=== PATIENT | male | born 1960 | race Caucasian/White ===

== ENCOUNTER 2020-09-25 19:30 | Outpatient (CLI) | payer OTHER | END 2020-09-25 19:31 | disposition home or self-care (01) | LOC: SLEEPLAB 19:30 | PROVIDERS: ATTEND Physician Assistant | DX: G47.33 Obstructive sleep apnea (adult) (pediatric) (principal); I10 Essential (primary) hypertension; R06.83 Snoring; E66.9 Obesity, unspecified; G47.10 Hypersomnia, unspecified; E11.9 Type 2 diabetes mellitus without complications; G47.00 Insomnia, unspecified; Z68.32 Body mass index [BMI] 32.0-32.9, adult | CPT/HCPCS: 95810 ==

== ENCOUNTER 2020-10-08 19:00 | Outpatient (CLI) | payer OTHER | END 2020-10-08 19:01 | disposition home or self-care (01) | LOC: SLEEPLAB 19:00 | PROVIDERS: ATTEND Physician Assistant | DX: G47.33 Obstructive sleep apnea (adult) (pediatric) (principal); E66.9 Obesity, unspecified; R06.83 Snoring; I10 Essential (primary) hypertension; Z68.32 Body mass index [BMI] 32.0-32.9, adult | CPT/HCPCS: 95811 ==

== ENCOUNTER 2022-06-03 11:43 | Outpatient (CLI) | payer OTHER ==
[2022-06-03 12:50] LABS: #Basophils 0.1 10x3/uL (0.0-0.2); #Eosinphils 0.1 10x3/uL (0.0-0.5); #Monocytes 0.5 10x3/uL (0.0-1.1); #Neutrophils 3.4 10x3/uL (1.5-8.4); %Basophils 1.4 % (0.0-2.0); %Eosinophils 1.9 % (0.0-6.0); %Monocytes 9.2 % (0.0-10.0); %Neutrophils 58.3 % (40.0-75.0); Hemoglobin 15.6 g/dL (13.5-17.5); Mean Corpuscular HGB CONC 34.4 g/dL (32.0-36.0); Mean Corpuscular Hemoglobin 27.8 pg (27.0-33.0); Mean Corpuscular Volume 80.9 fl (81.2-95.1); Mean Platelet Volume 12.4 fl (7.4-10.4); Platelet Count 231 10x3/uL (150-450); RBC Distribution Width 12.8 % (11.5-14.5); Red Blood Cell (RBC) Count 5.61 10x6/uL (4.32-5.72); White Blood Cell (WBC) Count 5.8 10x3/uL (3.5-10.5)
[2022-06-03 13:01] LABS: ALT (SGPT) 55 U/L (8-55); AST (SGOT) 30 U/L (5-34); Albumin 4.5 g/dL (3.5-5.0); Alkaline Phosphatase 56 U/L (40-110); Anion Gap 13 mmol/L (10-20); BUN (Urea Nitrogen) 13 mg/dL (8.4-25.7); Bilirubin, Total 0.5 mg/dL (0.2-1.2); Calc. Creatinine Clearance 0 mL/min (70-130); Calcium 9.6 mg/dL (7.8-10.44); Carbon Dioxide 28 mmol/L (22-29); Chloride 101 mmol/L (98-107); Estimated GFR 100; Globulin 2.9 g/dL (2.4-3.5); Glucose 228 mg/dL (70-105); Potassium 3.6 mmol/L (3.5-5.1); Protein, Total 7.4 g/dL (6.0-8.3); Sodium 138 mmol/L (136-145)
== END 2022-06-03 11:44 | disposition home or self-care (01) ==
LOC: LABBT 11:43
PROVIDERS: ATTEND Internal Medicine Cardiovascular Disease
DX: Z01.812 Encounter for preprocedural laboratory examination (principal); R94.39 Abnormal result of other cardiovascular function study; Z20.822 Contact with and (suspected) exposure to COVID-19
CPT/HCPCS: 80053; 85025; 87811

== ENCOUNTER 2022-06-08 05:55 | Day surgery (SDC) | payer OTHER ==
[2022-06-05 11:40] VITALS: BMI 32.5
[2022-06-08] MEDS ORDERED: Verapamil 5 MG/2 ML VIAL ONE (06:50)
[2022-06-08] MEDS ORDERED: Nitroglycerin 2% Ointment 1 INCH/1 GM Packet ONE (06:50)
[2022-06-08] MEDS ORDERED: Lidocaine 1% PF 5 ML VIAL ONE (06:50)
[2022-06-08] MEDS ORDERED: Heparin 10,000 UNITS/ 10 ML VIAL ONE (06:50)
[2022-06-08] MEDS ORDERED: Nitroglycerin 100MG/250ML BOT 250 ML ONE (06:52)
[2022-06-08] MEDS ORDERED: Fentanyl 100 MCG/2 ML VIAL ONE (07:39)
[2022-06-08] MEDS ORDERED: Midazolam HCl 2 mg/2 ml Vial ONE (07:39)
[2022-06-08] MEDS ORDERED: Iopamidol 370 76% 100 ML VIAL ONE (09:04)
== END 2022-06-08 13:10 | disposition home or self-care (01) ==
LOC: SDC 05:55
PROVIDERS: ATTEND Internal Medicine Cardiovascular Disease
PROC: B2111ZZ Fluoroscopy of Multiple Coronary Arteries using Low Osmolar Contrast (ICD-10-PCS; principal; 2022-06-08)
PROC: 4A023N7 Measurement of Cardiac Sampling and Pressure, Left Heart, Percutaneous Approach (ICD-10-PCS; principal; 2022-06-08)
DX: I25.119 Atherosclerotic heart disease of native coronary artery with unspecified angina pectoris (principal); I25.84 Coronary atherosclerosis due to calcified coronary lesion; I10 Essential (primary) hypertension; E78.5 Hyperlipidemia, unspecified; E11.9 Type 2 diabetes mellitus without complications; G47.33 Obstructive sleep apnea (adult) (pediatric); N52.9 Male erectile dysfunction, unspecified; J45.909 Unspecified asthma, uncomplicated; Z79.82 Long term (current) use of aspirin; Z79.84 Long term (current) use of oral hypoglycemic drugs; Z79.899 Other long term (current) drug therapy; Z88.0 Allergy status to penicillin
CPT/HCPCS: 93458; 99152; C1769; C1894; J1644; J2250; J3010

== ENCOUNTER 2022-06-15 11:00 | Inpatient (IN) | payer OTHER ==
[2022-06-15 12:48] LABS: Hemoglobin 15.4 g/dL (13.5-17.5); Mean Corpuscular HGB CONC 34.5 g/dL (32.0-36.0); Mean Corpuscular Hemoglobin 27.6 pg (27.0-33.0); Mean Corpuscular Volume 79.9 fl (81.2-95.1); Mean Platelet Volume 12.1 fl (7.4-10.4); Platelet Count 209 10x3/uL (150-450); RBC Distribution Width 12.9 % (11.5-14.5); Red Blood Cell (RBC) Count 5.58 10x6/uL (4.32-5.72); White Blood Cell (WBC) Count 8.2 10x3/uL (3.5-10.5)
[2022-06-15 13:02] LABS: Anion Gap 14 mmol/L (10-20); BUN (Urea Nitrogen) 17 mg/dL (8.4-25.7); Calc. Creatinine Clearance 0 mL/min (70-130); Calcium 9.8 mg/dL (7.8-10.44); Carbon Dioxide 27 mmol/L (22-29); Chloride 102 mmol/L (98-107); Estimated GFR 94; Glucose 202 mg/dL (70-105); Potassium 3.6 mmol/L (3.5-5.1); Sodium 139 mmol/L (136-145)
[2022-06-17] MEDS ORDERED: Levofloxacin 500 mg/D5W 100 ml Premix Bag ONE (06:28)
[2022-06-17] MEDS ORDERED: fentaNYL Citrate/PF 100 MCG/2 ML SYRINGE ONE (06:29)
[2022-06-17] MEDS ORDERED: Midazolam HCl 5 mg/5 ml Vial ONE (06:30)
[2022-06-17] MEDS ORDERED: Albumin 5% 500 ML ONE (06:34)
[2022-06-17] MEDS ORDERED: Lidocaine 1% MPF 2 ML VIAL ONE ×2 (06:44→06:47)
[2022-06-17] MEDS ORDERED: Heparin 10,000 UNITS/1 ML VIAL 30,000 UNITS in Sodium Chloride 0.9% 1,000 ML FS SCH (06:45)
[2022-06-17] MEDS ORDERED: Midazolam HCl 2 mg/2 ml Vial ONE (06:53)
[2022-06-17] MEDS ORDERED: Lidocaine 2% PF 100 mg/5 ml Syringe ONE (07:30)
[2022-06-17] MEDS ORDERED: PROPOFOL 200 MG/20 ML VIAL ONE (07:30)
[2022-06-17] MEDS ORDERED: Mannitol 12.5 GM/50 ML ONE (07:30)
[2022-06-17] MEDS ORDERED: Heparin 30,000 units/30 ml VIAL ONE (07:30)
[2022-06-17] MEDS ORDERED: Heparin 5,000 UNITS/ML VIAL ONE (07:30)
[2022-06-17] MEDS ORDERED: Cardioplegic Soln 1,000 ML BAG ONE (07:30)
[2022-06-17] MEDS ORDERED: Thrombin 5000 UNITS/5 ML VIAL ONE (07:30)
[2022-06-17] MEDS ORDERED: Albumin 25% 25 GM/100 ML BOT ONE (07:30)
[2022-06-17] MEDS ORDERED: Aminocaproic Acid 5 GM/20 ML VIAL ONE (07:30)
[2022-06-17] MEDS ORDERED: Magnesium Sulfate 1 GM/2 ML VIAL ONE (07:30)
[2022-06-17] MEDS ORDERED: Calcium Chloride 1 GM/10 ML Abboject SYRINGE ONE (07:30)
[2022-06-17] MEDS ORDERED: Vecuronium 10 MG VIAL ONE (07:30)
[2022-06-17] MEDS ORDERED: Papaverine 60 MG/2 ML VIAL ONE (07:30)
[2022-06-17] MEDS ORDERED: Protamine Sulfate 250 MG/25 ML VIAL ONE (07:30)
[2022-06-17] MEDS ORDERED: Sodium Bicarb 50 MEQ/50 ML Abboject 8.4% SYRINGE ONE (07:30)
[2022-06-17] MEDS ORDERED: PHENYLEPHRINE-NS 100 MCG/ML 10 ML SYRINGE ONE (07:40)
[2022-06-17] MEDS ORDERED: Clindamycin/D5W 900 mg/50 ml Premix Bag ONE (07:44)
[2022-06-17] MEDS ORDERED: Insulin Regular 300 UNITS/3 ML VIAL ONE (08:27)
[2022-06-17] MEDS ORDERED: Protamine Sulfate 50 MG/5 ML VIAL ONE (10:30)
[2022-06-17 11:25] LABS: ALV-art Gradient 269.675 mmHg (0-20); Actual Bicarbonate (HCO3a) 26.3 mEq/L (22-28); Base Excess (BEa) 0.4 mEq/L (-2.0 to +3.0); CO2 Tension 47.3 mmHg (35.0-45.0); Calcium, Ionized (arterial) 1.13 mmol/L (1.12-1.30); Carboxyhemoglobin (COHb) 0.5 gm% (0.0-3.0); Hemoglobin (Hb) 13.5 g/dL (14.0-18.0); Potassium - ABG Lab 2.98 mmol/L (3.70-5.30); Puncture Site Arterial Line; pH, Arterial 7.36 (7.35-7.45)
[2022-06-17] MEDS ORDERED: NOREPINEPHRINE 8 MG/250 ML-D5W 250 ML IVPB PRN (11:41)
[2022-06-17] MEDS ORDERED: Mag-Al 1200 mg/1200 mg/30 ML UDCUP PO PRN (11:41)
[2022-06-17] MEDS ORDERED: niCARdipine 25 MG in Sodium Chloride 0.9% 250 ML 250 ML IVPB PRN (11:41)
[2022-06-17] MEDS ORDERED: Hetastarch 6% 500 ML 500 ML IVPB PRN (11:41)
[2022-06-17] MEDS ORDERED: DOPamine 400 MG/D5W 250 ML 250 ML IVPB PRN (11:41)
[2022-06-17] MEDS ORDERED: Guaifenesin DM 100-10/5 ML UDCUP PO PRN (11:41)
[2022-06-17] MEDS ORDERED: Post-Op Insulin Drip Protocol IVPB ONE (11:41)
[2022-06-17] MEDS ORDERED: Promethazine HCl 25 MG/ML VIAL IM PRN (11:41)
[2022-06-17] MEDS ORDERED: Acetaminophen 325 MG TAB PO PRN (11:41)
[2022-06-17] MEDS ORDERED: Bisacodyl 10 MG SUPP PR PRN (11:41)
[2022-06-17] MEDS ORDERED: Nitroglycerin 50 MG/250 ML BOT 250 ML IVPB PRN (11:41)
[2022-06-17] MEDS ORDERED: Bisacodyl 5 MG TAB PO PRN (11:41)
[2022-06-17] MEDS ORDERED: hydrALAZINE 20 MG/ML VIAL SLOW IVP PRN (11:41)
[2022-06-17] MEDS ORDERED: Morphine 2 MG/ML VIAL SLOW IVP PRN (11:41)
[2022-06-17] MEDS ORDERED: Dextrose 5% in Water 1,000 ML IV PRN (11:45)
[2022-06-17] MEDS ORDERED: Dextrose 50% Abboject 50 ML SYRINGE SLOW IVP PRN (11:45)
[2022-06-17] MEDS ORDERED: HUMULIN R 100 UNITS in Sodium Chloride 0.9% 100 ML IVPB SCH (11:45)
[2022-06-17] MEDS ORDERED: Morphine 4 MG/ML VIAL ONE (11:46)
[2022-06-17 11:55] LABS: #Eosinphils 0.1 thou/uL (0.0-0.7); #Monocytes 0.4 thou/uL (0.11-0.59); #Neutrophils 13.8 thou/uL (1.40-6.50); %Basophils 0.1 % (0.0-1.0); %Eosinophils 0.8 % (0.0-10.0); %Lymphocytes 12.1 % (21.0-51.0); %Monocytes 2.3 % (0.0-10.0); %Neutrophils 84.7 % (42.0-75.0); Hemoglobin 13.2 g/dL (14.0-18.0); Mean Corpuscular HGB CONC 34.3 g/dL (32.0-36.0); Mean Corpuscular Hemoglobin 29.2 pg (27.0-31.0); Mean Corpuscular Volume 85.1 fL (78.0-98.0); Mean Platelet Volume 9.7 fL (7.4-10.4); Platelet Count 145 thou/uL (130-400); RBC Distribution Width 11.8 % (11.5-14.5); Red Blood Cell (RBC) Count 4.54 mill/uL (4.70-6.10); White Blood Cell (WBC) Count 16.3 thou/uL (4.8-10.8)
[2022-06-17] MEDS ORDERED: Ketorolac Tromethamine 30 MG/ML VIAL IVP SCH (12:00)
[2022-06-17 12:10] LABS: INR-International Normal Ratio 1.4; Prothrombin Time 17.5 sec (12.0-14.7)
[2022-06-17 12:11] LABS: PTT 28.9 sec (22.9-36.1)
[2022-06-17 12:15] LABS: Anion Gap 11 mmol/L (10-20); BUN (Urea Nitrogen) 11 mg/dL (8.4-25.7); Calc. Creatinine Clearance 156 mL/min (70-130); Calcium 8.4 mg/dL (7.8-10.44); Carbon Dioxide 27 mmol/L (22-29); Chloride 106 mmol/L (98-107); Estimated GFR 100; Glucose 183 mg/dL (70-105); Sodium 141 mmol/L (136-145)
[2022-06-17] MEDS: Lactated Ringer's 1,000 ML IV SCH (12:24)
[2022-06-17 12:41] LABS: Potassium 2.9 mmol/L (3.5-5.1)
[2022-06-17 12:41] LABS: Actual Bicarbonate (HCO3a) 23.9 mEq/L (22-28); Base Excess (BEa) 0.1 mEq/L (-2.0 to +3.0); CO2 Tension 36.2 mmHg (35.0-45.0); Carboxyhemoglobin (COHb) 0.4 gm% (0.0-3.0); Hemoglobin (Hb) 13.5 g/dL (14.0-18.0); O2 Tension (PaO2), arterial 213.9 mmHg (> 80.0); Potassium - ABG Lab 2.83 mmol/L (3.70-5.30); Puncture Site Arterial Line; pH, Arterial 7.44 (7.35-7.45)
[2022-06-17] MEDS: Potassium Chloride 20 MEQ/100 ML PREMIX BAG IVPB PRN ×2 (13:12→18:17)
[2022-06-17] MEDS: Fentanyl 100 MCG/2 ML VIAL SLOW IVP PRN ×5 (13:30→22:20)
[2022-06-17] MEDS: Clindamycin/D5W 900 MG in Premix Bag 1 BAG IVPB SCH ×3 (13:38→23:13)
[2022-06-17] MEDS: Ondansetron PF 4 MG/2 ML Vial IVP PRN ×2 (16:23→22:20)
[2022-06-17] MEDS: Ketorolac Tromethamine 30 MG/ML VIAL IVP SCH ×2 (17:50→23:15)
[2022-06-17 18:14] LABS: Potassium 2.9 mmol/L (3.5-5.1)
[2022-06-17 19:45] VITALS: BMI 32.3
[2022-06-17] MEDS: Atorvastatin Calcium 20 MG TAB PO SCH (20:24)
[2022-06-17] MEDS: Famotidine/PF 20 mg/2ml Vial SLOW IVP SCH (20:24)
[2022-06-17] MEDS ORDERED: Potassium Chloride 20 MEQ in Premix Bag 1 BAG IVPB SCH (22:00)
[2022-06-18] MEDS: Lactated Ringer's 1,000 ML IV SCH (00:42)
[2022-06-18] MEDS: Fentanyl 100 MCG/2 ML VIAL SLOW IVP PRN ×2 (01:30→04:35)
[2022-06-18 04:44] LABS: #Lymphocytes 1.1 thou/uL (1.20-3.40); #Monocytes 1.3 thou/uL (0.11-0.59); #Neutrophils 9.3 thou/uL (1.40-6.50); %Basophils 0.3 % (0.0-1.0); %Eosinophils 0.1 % (0.0-10.0); %Lymphocytes 9.7 % (21.0-51.0); %Monocytes 11.2 % (0.0-10.0); %Neutrophils 78.7 % (42.0-75.0); Hemoglobin 13.1 g/dL (14.0-18.0); Mean Corpuscular HGB CONC 32.9 g/dL (32.0-36.0); Mean Corpuscular Hemoglobin 27.9 pg (27.0-31.0); Mean Corpuscular Volume 84.6 fL (78.0-98.0); Mean Platelet Volume 10.1 fL (7.4-10.4); Platelet Count 163 thou/uL (130-400); RBC Distribution Width 11.9 % (11.5-14.5); Red Blood Cell (RBC) Count 4.71 mill/uL (4.70-6.10); White Blood Cell (WBC) Count 11.8 thou/uL (4.8-10.8)
[2022-06-18 05:08] LABS: Anion Gap 12 mmol/L (10-20); BUN (Urea Nitrogen) 10 mg/dL (8.4-25.7); Calc. Creatinine Clearance 172 mL/min (70-130); Calcium 8.5 mg/dL (7.8-10.44); Carbon Dioxide 26 mmol/L (22-29); Chloride 105 mmol/L (98-107); Estimated GFR 103; Glucose 123 mg/dL (70-105); Sodium 140 mmol/L (136-145)
[2022-06-18] MEDS: Clindamycin/D5W 900 MG in Premix Bag 1 BAG IVPB SCH (05:09)
[2022-06-18 05:23] LABS: Potassium 2.9 mmol/L (3.5-5.1)
[2022-06-18] MEDS: Potassium Chloride 20 MEQ/100 ML PREMIX BAG IVPB PRN (05:29)
[2022-06-18] MEDS: Ketorolac Tromethamine 30 MG/ML VIAL IVP SCH ×3 (05:43→17:39)
[2022-06-18] MEDS ORDERED: glipiZIDE 5 MG TAB PO SCH (07:30)
[2022-06-18] MEDS: Aspirin Chewable 81 MG TAB PO SCH (08:29)
[2022-06-18] MEDS: Magnesium 2 GM/50 ML(in water) 2 GM in Premix Bag 1 BAG IVPB SCH (08:29)
[2022-06-18] MEDS: Potassium Chloride 10 MEQ TAB PO SCH ×2 (08:30→17:39)
[2022-06-18] MEDS: glipiZIDE 5 MG TAB PO SCH (08:30)
[2022-06-18] MEDS: Polyethylene Glycol 3350 17 GM Packet PER TUBE SCH (08:30)
[2022-06-18] MEDS: Famotidine/PF 20 mg/2ml Vial SLOW IVP SCH ×2 (08:30→21:30)
[2022-06-18] MEDS ORDERED: Losartan 25 MG TAB PO SCH (09:00)
[2022-06-18] MEDS ORDERED: FLU VACC QS2022-23(6MOS UP)/PF 60 MCG/0.5 ML SYRINGE IM ONE (09:00)
[2022-06-18] MEDS ORDERED: Metoprolol Tartrate 25 MG TAB PO SCH (09:00)
[2022-06-18] MEDS: HYDROcodone/Acetaminophen 5/325 mg Tablet PO PRN ×3 (09:17→20:14)
[2022-06-18] MEDS: Insulin Regular 300 UNITS/3 ML VIAL SC PRN ×2 (11:34→20:15)
[2022-06-18] MEDS ORDERED: Insulin Glargine 30 UNITS/0.3 ML VIAL SC PRN (11:45)
[2022-06-18] MEDS: Atorvastatin Calcium 20 MG TAB PO SCH (20:14)
[2022-06-19] MEDS: Ketorolac Tromethamine 30 MG/ML VIAL IVP SCH ×5 (00:14→22:08)
[2022-06-19] MEDS: HYDROcodone/Acetaminophen 5/325 mg Tablet PO PRN ×3 (03:12→20:38)
[2022-06-19 03:34] LABS: #Lymphocytes 1.4 thou/uL (1.20-3.40); #Neutrophils 7.3 thou/uL (1.40-6.50); %Basophils 0.3 % (0.0-1.0); %Eosinophils 0.2 % (0.0-10.0); %Lymphocytes 14.6 % (21.0-51.0); %Monocytes 10.4 % (0.0-10.0); %Neutrophils 74.5 % (42.0-75.0); Hemoglobin 12.2 g/dL (14.0-18.0); Mean Corpuscular Hemoglobin 28.3 pg (27.0-31.0); Mean Corpuscular Volume 85.7 fL (78.0-98.0); Mean Platelet Volume 9.4 fL (7.4-10.4); Platelet Count 140 thou/uL (130-400); RBC Distribution Width 11.8 % (11.5-14.5); White Blood Cell (WBC) Count 9.8 thou/uL (4.8-10.8)
[2022-06-19 04:21] LABS: Anion Gap 10 mmol/L (10-20); BUN (Urea Nitrogen) 18 mg/dL (8.4-25.7); Calc. Creatinine Clearance 131 mL/min (70-130); Calcium 8.2 mg/dL (7.8-10.44); Carbon Dioxide 29 mmol/L (22-29); Chloride 99 mmol/L (98-107); Estimated GFR 86; Glucose 133 mg/dL (70-105); Sodium 135 mmol/L (136-145)
[2022-06-19] MEDS: Potassium Chloride 20 MEQ/100 ML PREMIX BAG IVPB PRN (05:33)
[2022-06-19] MEDS: glipiZIDE 5 MG TAB PO SCH (07:04)
[2022-06-19] MEDS: Insulin Regular 300 UNITS/3 ML VIAL SC PRN ×4 (07:06→20:39)
[2022-06-19] MEDS: Magnesium 2 GM/50 ML(in water) 2 GM in Premix Bag 1 BAG IVPB SCH (08:02)
[2022-06-19] MEDS: Potassium Chloride 10 MEQ TAB PO SCH ×2 (08:02→16:59)
[2022-06-19] MEDS: Aspirin Chewable 81 MG TAB PO SCH (08:02)
[2022-06-19] MEDS: Polyethylene Glycol 3350 17 GM Packet PER TUBE SCH (08:02)
[2022-06-19] MEDS: Famotidine/PF 20 mg/2ml Vial SLOW IVP SCH (08:50)
[2022-06-19] MEDS ORDERED: Nitroglycerin 0.4 MG TAB (25 Tab Bottle) SL PRN (08:52)
[2022-06-19] MEDS ORDERED: Zolpidem Tartrate 5 MG TAB PO PRN (08:52)
[2022-06-19] MEDS ORDERED: Dextrose 5% in Water 1,000 ML IV PRN (09:15)
[2022-06-19] MEDS ORDERED: Dextrose 50% Abboject 50 ML SYRINGE SLOW IVP PRN (09:15)
[2022-06-19] MEDS: Famotidine 20 MG TAB PO SCH ×2 (10:00→20:38)
[2022-06-19] MEDS ORDERED: Amiodarone 150 MG in Dextrose 5% in Water 100 ML IVPB SCH (12:45)
[2022-06-19] MEDS: Amiodarone 450 MG in Dextrose 5% in Water 250 ML IVPB SCH ×2 (13:32→22:08)
[2022-06-19 13:37] LABS: ALT (SGPT) 15 U/L (8-55); AST (SGOT) 16 U/L (5-34); Albumin 3.5 g/dL (3.5-5.0); Alkaline Phosphatase 44 U/L (40-110); Bilirubin, Direct 0.2 mg/dL (0.1-0.3); Bilirubin, Total 0.6 mg/dL (0.2-1.2); Magnesium 2.7 mg/dL (1.6-2.6); Protein, Total 6.2 g/dL (6.0-8.3)
[2022-06-19] MEDS: glyBURIDE 5 MG TAB PO SCH (16:59)
[2022-06-19] MEDS: Atorvastatin Calcium 20 MG TAB PO SCH (20:38)
[2022-06-20] MEDS: Ketorolac Tromethamine 30 MG/ML VIAL IVP SCH ×3 (05:55→17:23)
[2022-06-20] MEDS: HYDROcodone/Acetaminophen 5/325 mg Tablet PO PRN ×3 (05:55→20:23)
[2022-06-20] MEDS: Insulin Regular 300 UNITS/3 ML VIAL SC PRN ×3 (05:56→17:25)
[2022-06-20 09:48] LABS: Glucose 182 mg/dL (70-105)
[2022-06-20] MEDS: glipiZIDE 5 MG TAB PO SCH (09:53)
[2022-06-20] MEDS: Amiodarone 200 MG TAB PO SCH ×3 (09:53→20:24)
[2022-06-20] MEDS: Aspirin Chewable 81 MG TAB PO SCH (09:53)
[2022-06-20] MEDS: Famotidine 20 MG TAB PO SCH ×2 (09:53→20:23)
[2022-06-20] MEDS: Polyethylene Glycol 3350 17 GM Packet PER TUBE SCH (09:53)
[2022-06-20] MEDS: Potassium Chloride 10 MEQ TAB PO SCH ×2 (09:53→16:18)
[2022-06-20] MEDS ORDERED: FLU VACC QS2022-23(6MOS UP)/PF 60 MCG/0.5 ML SYRINGE IM ONE (15:00)
[2022-06-20] MEDS: glyBURIDE 5 MG TAB PO SCH (16:18)
[2022-06-20] MEDS: Atorvastatin Calcium 20 MG TAB PO SCH (20:23)
[2022-06-21] MEDS: Insulin Regular 300 UNITS/3 ML VIAL SC PRN (05:41)
[2022-06-21] MEDS: HYDROcodone/Acetaminophen 5/325 mg Tablet PO PRN (05:50)
[2022-06-21 08:15] VITALS: TEMP 97.3
[2022-06-21] MEDS ORDERED: Amiodarone 200 MG TAB PO SCH (09:00)
[2022-06-21] MEDS: Famotidine 20 MG TAB PO SCH (09:26)
[2022-06-21] MEDS: Aspirin Chewable 81 MG TAB PO SCH (09:26)
[2022-06-21] MEDS: Potassium Chloride 10 MEQ TAB PO SCH (09:26)
[2022-06-21] MEDS: Polyethylene Glycol 3350 17 GM Packet PER TUBE SCH (09:27)
[2022-06-21] MEDS: glipiZIDE 5 MG TAB PO SCH (09:27)
[2022-06-21 11:08] VITALS: BP 161/81
== END 2022-06-21 13:10 | disposition home or self-care (01) | DRG 236 ==
LOC: SURG A 06-17 05:56 → CCU 06-17 10:34 → 2NO 06-19 10:00
PROVIDERS: ADMIT Thoracic Surgery (Cardiothoracic Vascular Surgery); ATTEND Thoracic Surgery (Cardiothoracic Vascular Surgery)
PROC: 02100Z9 Bypass Coronary Artery, One Artery from Left Internal Mammary, Open Approach (ICD-10-PCS; principal; 2022-06-17)
PROC: 021009W Bypass Coronary Artery, One Artery from Aorta with Autologous Venous Tissue, Open Approach (ICD-10-PCS; 2022-06-17)
PROC: 06BQ0ZZ Excision of Left Saphenous Vein, Open Approach (ICD-10-PCS; 2022-06-17)
PROC: 02L70CK Occlusion of Left Atrial Appendage with Extraluminal Device, Open Approach (ICD-10-PCS; 2022-06-17)
PROC: 5A1221Z Performance of Cardiac Output, Continuous (ICD-10-PCS; 2022-06-17)
DX: I25.10 Atherosclerotic heart disease of native coronary artery without angina pectoris (principal); I97.190 Other postprocedural cardiac functional disturbances following cardiac surgery; E11.9 Type 2 diabetes mellitus without complications; I10 Essential (primary) hypertension; I48.91 Unspecified atrial fibrillation; E78.5 Hyperlipidemia, unspecified; G47.33 Obstructive sleep apnea (adult) (pediatric); J45.909 Unspecified asthma, uncomplicated; Z96.1 Presence of intraocular lens; Z88.0 Allergy status to penicillin; Z82.49 Family history of ischemic heart disease and other diseases of the circulatory system; Z83.3 Family history of diabetes mellitus; Z79.899 Other long term (current) drug therapy; Z79.84 Long term (current) use of oral hypoglycemic drugs; Z98.42 Cataract extraction status, left eye; Z98.41 Cataract extraction status, right eye; Z80.9 Family history of malignant neoplasm, unspecified; Z20.822 Contact with and (suspected) exposure to COVID-19; Y83.2 Surgical operation with anastomosis, bypass or graft as the cause of abnormal reaction of the patient, or of later complication, without mention of misadventure at the time of the procedure
CPT/HCPCS: 36416; 36430; 71045; 80048; 80061; 80076; 82043; 82805; 82947; 83036; 83735; 84443; 85025; 85027; 85610; 85730; 86850; 86900; 86901; 87811; 93005; 93010; 93798; 94002; 94150; 97139; C1713; C1751; G0103; J0282; J1642; J1644; J1815; J1885; J1956; J2001; J2150; J2250; J2270; J2405; J2440; J2704; J2720; J3010; J3370; J3475; J3480; J3490; J7070; J7120; P9045; P9047; S0017; S0028

== ENCOUNTER 2022-07-20 16:00 | Outpatient (CLI) | payer OTHER | END 2022-07-20 16:01 | disposition home or self-care (01) | LOC: RAD 16:00 | PROVIDERS: ATTEND Internal Medicine Cardiovascular Disease | DX: R06.02 Shortness of breath (principal); J90 Pleural effusion, not elsewhere classified | CPT/HCPCS: 71046 ==

== ENCOUNTER 2023-08-09 17:16 | Emergency (ER) | payer OTHER ==
[2023-08-09] MEDS ORDERED: Aspirin Chewable 81 MG TAB ONE (18:33)
[2023-08-09 18:34] LABS: #Basophils 0.1 thou/uL (0.0-0.2); #Eosinphils 0.1 thou/uL (0.0-0.7); #Monocytes 0.6 thou/uL (0.11-0.59); #Neutrophils 3.9 thou/uL (1.40-6.50); %Eosinophils 1.3 % (0.0-10.0); %Lymphocytes 26.2 % (21.0-51.0); %Neutrophils 62.2 % (42.0-75.0); Hematocrit 50.4 % (42.0-52.0); Hemoglobin 16.2 g/dL (14.0-18.0); Mean Corpuscular HGB CONC 32.1 g/dL (32.0-36.0); Mean Corpuscular Hemoglobin 27.6 pg (27.0-31.0); Mean Corpuscular Volume 85.9 fl (78.0-98.0); Mean Platelet Volume 12.5 fL (7.4-10.4); Platelet Count 182 10x3/uL (130-400); Red Blood Cell (RBC) Count 5.87 mill/uL (4.70-6.10); White Blood Cell (WBC) Count 6.2 10x3/uL (4.8-10.8)
[2023-08-09] MEDS ORDERED: Nebivolol HCl 5 MG TAB PO SCH (18:45)
[2023-08-09 20:00] LABS: Albumin 4.2 g/dL (3.4-4.8)
[2023-08-09 20:01] LABS: Calcium 9.3 mg/dL (7.8-10.44); Chloride 104 mmol/L (98-107); Potassium 3.8 mmol/L (3.5-5.1); Sodium 141 mmol/L (136-145)
[2023-08-09 20:02] LABS: Globulin 2.7 g/dL (2.4-3.5); Glucose 124 mg/dL (80-115); Protein, Total 6.9 g/dL (5.8-8.1)
[2023-08-09 20:03] LABS: Anion Gap 14 mmol/L (10-20)
[2023-08-09 20:04] LABS: Bilirubin, Total 0.6 mg/dL (0.2-1.2); Carbon Dioxide 27 mmol/L (23-31)
[2023-08-09 20:05] LABS: Alkaline Phosphatase 66 U/L (40-110); Calc. Creatinine Clearance 0 mL/min (70-130); Estimated GFR 100
[2023-08-09 20:06] LABS: BUN (Urea Nitrogen) 13 mg/dL (8.4-25.7)
[2023-08-09 20:07] LABS: AST (SGOT) 21 U/L (5-34); Magnesium 1.9 mg/dL (1.6-2.6)
[2023-08-09 20:08] LABS: ALT (SGPT) 24 U/L (8-55); Lipase 37 U/L (8-78)
[2023-08-09 20:40] LABS: Troponin I Less than 0.010 ng/mL (< 0.028)
== END 2023-08-09 21:16 | disposition home or self-care (01) ==
LOC: ERS 17:16
DX: I16.0 Hypertensive urgency (principal); R07.89 Other chest pain; I25.10 Atherosclerotic heart disease of native coronary artery without angina pectoris; E11.9 Type 2 diabetes mellitus without complications; I10 Essential (primary) hypertension; K21.9 Gastro-esophageal reflux disease without esophagitis; E78.5 Hyperlipidemia, unspecified; Z79.82 Long term (current) use of aspirin; Z79.84 Long term (current) use of oral hypoglycemic drugs; Z79.899 Other long term (current) drug therapy; Z95.1 Presence of aortocoronary bypass graft
CPT/HCPCS: 36415; 71045; 80053; 83690; 83735; 84484; 85025; 93005

== ENCOUNTER 2025-05-15 10:49 | Outpatient (CLI) | payer OTHER | END 2025-05-15 10:50 | disposition home or self-care (01) | LOC: MRI 10:49 | PROVIDERS: ATTEND Orthopaedic Surgery | DX: M24.811 Other specific joint derangements of right shoulder, not elsewhere classified (principal); M19.011 Primary osteoarthritis, right shoulder ==